=== PATIENT | male | born 1990 | race Caucasian/White ===

== ENCOUNTER → 2019-02-04 15:39 | Outpatient (CLI) | payer OTHER, MEDICAID, SELFPAY ==
[2019-02-04 17:37] LABS: Hepatitis B Surface Antigen NEGATIVE s/c (NEGATIVE)
[2019-02-04 17:44] LABS: Urine Chlamydia NOT DETECTED
[2019-02-04 17:52] LABS: HIV 1 & 2 Ab/Ag 4th Gen Combo NEGATIVE (NEGATIVE); Hep C Virus Ab w/Reflex Quant NEGATIVE s/c (NEGATIVE)
[2019-02-07 22:23] LABS: RPR Screen Nonreactive (Nonreactive)
[2019-02-08 08:42] LABS: Urine N gonorrhoeae DETECTED
== END ==
PROVIDERS: PCP Family Medicine; Visit Provider Family Medicine
DX: N48.9 Disorder of penis, unspecified (principal)
CPT/HCPCS: 36415; 86592; 86803; 87340; 87389; 87491; 87591

== ENCOUNTER 2019-02-06 05:28 | Emergency (ER) | payer OTHER, MEDICAID, SELFPAY ==
[2019-02-06 05:34] VITALS: BP 130/75; PULSE 82; RESP 18; TEMP 36.5; O2SAT 98
[2019-02-06 05:52] LABS: Bacteria Urine None Seen
[2019-02-06 06:09] LABS: Bilirubin Urine UA NEGATIVE (NEGATIVE); Color Urine UA YELLOW; Glucose Urine UA NEGATIVE (Negative); Ketones Urine UA NEGATIVE (NEGATIVE); Leukocyte Esterase Urine UA 3+ (NEGATIVE); Nitrite Urine UA NEGATIVE (Negative); Occult Blood Urine UA 3+ (Negative); Protein Urine UA NEGATIVE (Negative); Specific Gravity Urine UA <=1.005 (1.000-1.035); Urobilinogen Urine UA 0.2 E.U./dL (0.2)
[2019-02-06 06:14] LABS: Appearance Urine UA SL CLOUDY
--- NOTE | 2019-02-06 06:21 | ED.MALEGU ---
HPI - Male Genitourinary General Chief complaint: Urogenital-Male Stated complaint: UTI Source: patient Mode of arrival: Ambulatory Limitations: no limitations History of Present Illness HPI Narrative: 28-year-old male comes emergency department with complaint of pain at the urethra, discharge, dysuria that is been worsening. Patient actually saw his primary care on sounds like they did urine gonorrhea chlamydia testing, HIV, syphilis and hepatitis. Patient has not gotten those results back yet but he states he was having some dysuria and was concerned about possible STDs. Patient states he has had exposures that would be potential for causing infection. Patient denies any fevers, he denies any abdominal pain, no vomiting, no testicular pain. He he states he has had STDs in the past. He denies any other medical problems other than psychiatric issues. He states his psychiatric issues are controlled this time. He denies any allergies to medications Related Data Home Medications Medication Instructions Recorded Confirmed No Known Home Medications 02/04/19 02/04/19 Allergies Allergy/AdvReac Type Severity Reaction Status Date / Time No Known Drug Allergies Allergy Verified 02/04/19 14:39 Review of Systems Review of Systems ROS Unobtainable: All systems reviewed & are unremarkable except as noted in HPI and below Patient History Medical/Surgical History Medical History Anxiety (Chronic) Chronic back pain (Chronic ~2006) Chronic cough (Chronic ~2014) Depression (Chronic) GERD (gastroesophageal reflux disease) (Chronic) Headache (Chronic ~2012) Herpes (Chronic ~2011) Occipital neuralgia (Chronic ~2012) Surgical History Anesthesia (Resolved) History of third molar tooth extraction Status post tonsillectomy and adenoidectomy Social History marital status: unmarried,single Smoking Status: Never smoker alcohol intake: current (ON OCCASION ) substance use type: marijuana Family/Social History Social History marital status: unmarried,single Smoking Status: Never smoker alcohol intake: current (ON OCCASION ) substance use type: marijuana alcohol intake frequency: a few times a month Alcohol type: beer and wine Substance Use Type: marijuana Exam Narrative Exam Narrative: GENERAL: Alert and oriented x three, well-nourished, well-appearing male in mild distress. HEENT: Head normocephalic, atraumatic, EOMI, pupils reactive, face symmetric, moist mucous membranes NECK: Supple, full range of motion CARDIOVASCULAR: Regular rate and rhythm without murmurs, rubs or gallops. RESPIRATORY: Breath sounds equal bilaterally, no wheezes rales or rhonchi. ABDOMEN: Soft, nontender. Normoactive bowel sounds all 4 quadrants. No guarding or rebound, rigidity, no mass : No CVA tenderness. Male: Patient has normal testicles, patient is uncircumcised, patient does have swelling at the urethra with small amount of discharge and irritation, there are no vesicles or is, no other rash. testicles non-tender, cremasteric reflex intact, no inguinal hernias noted. EXTREMITIES: Normal range of motion, no clubbing or edema. Neurovascularly intact NEUROLOGICAL: Cranial nerves II through XII grossly intact. Moving all extremities SKIN: Warm, dry, no petechiae, no rashes or lesions. Initial Vital Signs Initial Vital Signs: Vital Signs Temperature 97.7 F 02/06/19 05:34 Pulse Rate 82 02/06/19 05:34 Respiratory Rate 18 02/06/19 05:34 Blood Pressure 130/75 02/06/19 05:34 Pulse Oximetry 98 02/06/19 05:34 Course Orders Ordered: ED Orders 02/06/19 05:45 Urinalysis and Microscopic Stat Urine Chlamydia Gonorrhea PCR Stat Urine Culture Stat Discontinued Medications Azithromycin (Zithromax) 1,000 mg PO NOW ONE Stop: 02/06/19 06:38 Last Admin: 02/06/19 06:48 Dose: 1,000 mg Documented by: MMCFARL Ceftriaxone Sodium (Rocephin) 250 mg IM NOW ONE Stop: 02/06/19 06:38 Vital Signs Vital signs: Vital Signs - 8 hr 02/06/19 05:34 Temperature 97.7 F Pulse Rate 82 Respiratory Rate 18 Blood Pressure 130/75 Pulse Oximetry 98 MDM - Male Genitourinary Lab Data Labs: Lab Results 02/06/19 Range/Units 05:45 Urine Color Yellow Urine Appearance Sl cloudy Urine pH 7.0 (4.5-8.0) Ur Specific [place] <=1.005 (1.000-1.035) Urine Protein Negative (Negative) Urine Glucose (UA) Negative (Negative) g/dL Urine Ketones Negative (NEGATIVE) Urine Occult Blood 3+ H (Negative) Urine Nitrate Negative (Negative) Urine Bilirubin Negative (NEGATIVE) Urine Urobilinogen 0.2 (0.2) E.U./dL Ur Leukocyte Esterase 3+ H (NEGATIVE) Urine RBC 5-10/hpf H (0-5/HPF) Urine WBC 10-30/hpf H (0-5/HPF) Urine Bacteria None seen (None) Ur Culture Indicated? Specimen cultured MDM Narrative Medical decision making narrative: Patient has urine gonorrhea that is positive from Dr. Powell. Patient's HIV is negative, some of his other lab work is still pending. Updated patient, Hoskins plan to treat with antibiotics and have a follow-up for testing to make sure that he has had curative treatment. Patient is comfortable with this plan has an appointment about a week from now on Friday. Discharge Plan Departure Patient Disposition: Home Clinical Impression: Gonorrhea Instructions: DI for Gonorrhea Activity Restrictions/Additional Instructions: Follow-up with Dr. Powell at your appointment on Friday. Discuss getting retested to make sure that you have had curative treatment. Do not engage in sexual activity until you have been retested for curative treatment. I would also recommend using condoms and measures to protect yourself from STDs. Return to the ER for fevers, rapidly worsening swelling, pain, difficulty or inability to urinate, no abdominal pain, persistent vomiting or other new or concerning symptoms. Prescriptions: No Action No Known Home Medications RF: 0 Referrals: David Powell MD [Primary Care Provider] -
[2019-02-06 06:41] LABS: Culture Indicated Urine Specimen Cultured; RBC Urine 5-10/HPF (0-5/HPF); WBC Urine 10-30/HPF (0-5/HPF)
[2019-02-06] MEDS: AZITHROMYCIN 250 MG TABLET 1000 MG PO (06:48)
[2019-02-06] MEDS: cefTRIAXone 500 MG VIAL 250 MG IM (07:41)
[2019-02-06 07:42] VITALS: BP 112/65; PULSE 72; RESP 16; O2SAT 98
[2019-02-06] MEDS: IBUPROFEN 400 MG TABLET PO (08:15)
[2019-02-06 08:17] LABS: Urine Chlamydia NOT DETECTED
[2019-02-06 08:49] VITALS: BP 118/71; PULSE 74; RESP 18; O2SAT 99
--- NOTE | 2019-02-06 12:30 | PC.NURSE ---
Called patients home phone and left a message that his cell phone was left here in the ER. Also called patients contacts # and left a message with caregiver for that family member. She said she would call the patients mother and ask her to let him know. Patients phone and chef under are locked in the psych lock drawer with patients stickers.
[2019-02-08 08:42] LABS: Urine N gonorrhoeae DETECTED
== END 2019-02-06 08:49 | disposition home or self-care (01) ==
PROVIDERS: Emergency Provider Emergency Medicine; PCP Family Medicine
DX: A54.9 Gonococcal infection, unspecified (principal)
CPT/HCPCS: 81001; 87086; 87491; 87591; 96372; 99282; 99283; J0696

== ENCOUNTER → 2019-02-26 16:27 | Outpatient (CLI) | payer OTHER, MEDICAID, SELFPAY ==
[2019-02-26 18:31] LABS: Urine N gonorrhoeae NOT DETECTED
[2019-02-26 19:06] LABS: Urine Chlamydia NOT DETECTED
== END ==
PROVIDERS: PCP Family Medicine; Visit Provider Family Medicine
DX: A54.9 Gonococcal infection, unspecified (principal); A64 Unspecified sexually transmitted disease
CPT/HCPCS: 87491; 87591

== ENCOUNTER → 2019-05-15 17:03 | Outpatient (CLI) | payer OTHER, MEDICAID, SELFPAY | PROVIDERS: PCP Family Medicine; Visit Provider Physician Assistant | DX: S81.009A Unspecified open wound, unspecified knee, initial encounter (principal) | CPT/HCPCS: 87070; 87075; 87077; 87147; 87186; 87205 ==

== ENCOUNTER → 2019-09-07 16:25 | Outpatient (CLI) | payer OTHER, MEDICAID, SELFPAY ==
[2019-09-08 17:32] LABS: Hep C Virus Ab w/Reflex Quant NEGATIVE s/c (NEGATIVE)
== END ==
PROVIDERS: PCP Family Medicine; Referring Provider Family Medicine; Visit Provider Family Medicine
DX: A64 Unspecified sexually transmitted disease (principal)
CPT/HCPCS: 36415; 86696; 86803

== ENCOUNTER → 2019-10-17 09:23 | Outpatient (CLI) | payer OTHER, MEDICAID, SELFPAY ==
[2019-10-17 09:44] LABS: Add Manual Diff / Slide Review NO; Basophils Absolute Auto 0 /uL (0-100); Basophils Percent Auto 0.5 % (0-2); Eosinophils Absolute Auto 300 /uL (0-450); Eosinophils Percent Auto 5.3 % (2-4); Hematocrit 45.5 % (41-53); Lymphocytes Absolute Auto 1400 /uL (1100-4500); Lymphocytes Percent Auto 28.8 % (25-40); Mean Corpuscular HGB Conc 35.1 % (30-36); Mean Corpuscular Hemoglobin 30.6 PG (26-34); Mean Corpuscular Volume 87.1 fL (80-100); Monocytes Absolute Auto 500 /uL (0-900); Monocytes Percent Auto 9.7 % (3-14); Neutrophils Absolute Auto 2800 /uL (1500-7000); Neutrophils Percent Auto 55.7 % (50-75); Platelet Count 130 X10^3/uL (150-400); Red Blood Cell Count 5.22 X10^6/uL (4.5-5.9)
[2019-10-17 09:56] LABS: Alanine Aminotransferase 15 IU/L (<50); Albumin 4.6 g/dL (3.5-5.0); Albumin Globulin Ratio 1.7 (1.0-2.8); Alkaline Phosphatase 34 U/L (38-126); Aspartate Aminotransferase 22 IU/L (17-59); BUN Creatinine Ratio 20.3 (6-22); Bilirubin Total 1.5 mg/dL (0.2-1.3); Blood Urea Nitrogen 16 mg/dL (9-20); Calcium 9.4 mg/dL (8.4-10.2); Carbon Dioxide 31 mmol/L (22-32); Chloride 102 mmol/L (98-107); Estimated Glomerular Filt Rate > 60.0 mL/min (>60); Globulin 2.7 g/dL (1.7-4.1); Glucose 100 mg/dL (70-100); HEMOLYSIS < 15 (0-50); Potassium 4.1 mmol/L (3.4-5.1); Sodium 139 mmol/L (137-145); Total Protein 7.3 g/dL (6.3-8.2)
== END ==
PROVIDERS: PCP Family Medicine; Referring Provider Family Medicine; Visit Provider Family Medicine
DX: R73.9 Hyperglycemia, unspecified (principal)
CPT/HCPCS: 36415; 80053; 85025

== ENCOUNTER → 2020-07-19 14:29 | Outpatient (CLI) | payer OTHER, MEDICAID, SELFPAY ==
[2020-07-20 06:02] LABS: RPR Screen Non Reactive (Non Reactive)
[2020-07-20 16:19] LABS: Hepatitis B Surface Antigen NEGATIVE s/c (NEGATIVE)
[2020-07-20 16:37] LABS: HIV 1 & 2 Ab/Ag 4th Gen Combo NEGATIVE (NEGATIVE); Hep C Virus Ab w/Reflex Quant NEGATIVE s/c (NEGATIVE)
[2020-07-21 00:07] LABS: Chlamydia trachomatis NAA Negative (Negative); Neisseria gonorrhoeae NAA Negative (Negative)
== END ==
PROVIDERS: PCP Family Medicine; Referring Provider Family Medicine; Visit Provider Family Medicine
DX: Z11.3 Encounter for screening for infections with a predominantly sexual mode of transmission (principal)
CPT/HCPCS: 36415; 86592; 86803; 87340; 87389; 87491; 87591

== ENCOUNTER 2021-08-13 11:54 | Emergency (ER) | payer OTHER, MEDICAID, SELFPAY ==
[2021-08-13 12:36] VITALS: BP 113/74; PULSE 61; RESP 18; TEMP 36.2; O2SAT 99; BMI 23.7
--- NOTE | 2021-08-13 15:40 | ED_ITS ---
HPI - Recheck/Abnormal Lab/Rx <JAMIE Moses - Last Filed: 08/13/21 16:25> General Chief Complaint: Recheck/Abnormal Lab/Rx Stated Complaint: got electricuted last night by wall heater Time Seen by Provider: 08/13/21 15:33 Source: patient Mode of arrival: Ambulatory History of Present Illness HPI narrative: 30-year-old male presents to the emergency department after he states he had an electrical injury he came in contact with last night. Patient states that he was cleaning a heater panel, he felt hit like tingly and then was not sure and then touched it harder and then it shocked his hand he states that the numbness and tingling went up his arm to his face. He denies any syncope, he denies any chest pain, palpitations, dizziness, lightheadedness, headache, vision changes, weakness, or any other concern. He states that it resolved just after but then he was doing some searching on the Internet about possible injuries and became nervous. Patient denies any shortness of breath, difficulty breathing, chest pain, or back pain. He denies any ongoing sensation changes in his right arm and face. He is tolerating p.o. without any difficulty has not had a fever. Denies any rash or burn on his hand. Related Data Home Medications Medication Instructions Recorded Confirmed No Known Home Medications 08/13/21 08/13/21 Allergies Allergy/AdvReac Type Severity Reaction Status Date / Time No Known Drug Allergies Allergy Verified 08/13/21 12:40 Review of Systems <JAMIE Moses - Last Filed: 08/13/21 16:25> Review of Systems Narrative: General: denies fever, chills Head/Neck: denies headache, neck pain Eyes: denies visual changes, eye pain Cardio: denies chest pain, palpitations Respiratory: denies shortness of breath, cough GI: denies abdominal pain, nausea, vomiting, or diarrhea : denies dysuria, hematuria MSK: denies joint pain, muscle weakness Skin: denies rash, itching Neuro: denies numbness, tingling Patient History <JAMIE Moses - Last Filed: 08/13/21 16:25> Medical History Anxiety Chronic back pain (~2006) Chronic cough (~2014) Depression GERD (gastroesophageal reflux disease) Headache (~2012) Herpes (~2011) Occipital neuralgia (~2012) Scabies STI (sexually transmitted infection) Surgical History Anesthesia History of third molar tooth extraction Status post tonsillectomy and adenoidectomy Social History marital status: unmarried,single Smoking Status: Never smoker alcohol intake: current substance use type: marijuana Smoking Status: Never smoker alcohol intake frequency: a few times a month Alcohol type: beer and wine Substance Use Type: marijuana Exam <JAMIE Moses - Last Filed: 08/13/21 16:25> Narrative Exam Narrative: Independently reviewed vitals signs and nursing notes. General: cooperative, comfortable, in no acute distress, well developed and well groomed Head: atraumatic, symmetrical facial expressions Neck: supple, atraumatic, without lymphadenopathy. Eyes: pupils equal round and reactive, EOMI, conjunctiva normal Nose: nares patent, no rhinorrhea Mouth/Throat: moist mucus membranes Cardiovascular: regular rate and rhythm sinus bradycardia, no peripheral edema, warm extremities Respiratory: normal effort, able to speak in complete sentences, no audible wheezing, stridor, or rales. No retractions or tachypnea. GI: abdomen soft, nontender to palpation, nondistended, no masses, no exquisite tenderness with exam, without guarding or rebound. MSK: moves all extremities, ambulatory w/steady gait, neurovascularly intact, no weakness Skin: brisk capillary refill, no rash, no erythema, no wound Neuro: normal speech and cognition, A&O x3, normal tone Psych: mental status is grossly normal, congruent mood, normal affect, pleasant and cooperative Initial Vital Signs Initial Vital Signs: Vital Signs Temperature 97.1 F L 08/13/21 12:36 Pulse Rate 61 08/13/21 12:36 Respiratory Rate 18 08/13/21 12:36 Blood Pressure 113/74 08/13/21 12:36 Pulse Oximetry 99 08/13/21 12:36 <Nina Gaspar DO - Last Filed: 08/14/21 19:27> Initial Vital Signs Initial Vital Signs: Vital Signs Temperature 97.1 F L 08/13/21 12:36 Pulse Rate 61 08/13/21 12:36 Respiratory Rate 18 08/13/21 12:36 Blood Pressure 113/74 08/13/21 12:36 Pulse Oximetry 99 08/13/21 12:36 Course <JAMIE Moses - Last Filed: 08/13/21 16:25> Orders Ordered: ED Orders 08/13/21 15:40 EKG-12 Lead Stat Vital Signs Vital signs: Vital Signs - 8 hr 08/13/21 12:36 Temperature 97.1 F L Pulse Rate 61 Respiratory Rate 18 Blood Pressure 113/74 Pulse Oximetry 99 <Nina Gaspar DO - Last Filed: 08/14/21 19:27> Orders Ordered: ED Orders 08/13/21 15:40 EKG-12 Lead Stat Vital Signs Vital signs: Vital Signs - 8 hr 08/13/21 12:36 Temperature 97.1 F L Pulse Rate 61 Respiratory Rate 18 Blood Pressure 113/74 Pulse Oximetry 99 MDM - Recheck/Abnormal Lab/Rx <JAMIE Moses - Last Filed: 08/13/21 16:25> ECG Data Interpretation: EKG independently reviewed by myself and Dr. Gaspar which reveals sinus bradycardia at [56] bpm with regular axis and intervals. No STEMI, ST segment c hanges, arrhythmia, or acute ischemic changes. No priors to compare to. [facility] Narrative Medical decision making narrative: This is a 30-year-old male who was cleaning a heater last night when he states he was electrocuted by it and the spasms went up his right arm to his face, and then dissipated. He was concerned about a brain injury. He requested an EKG for concerns about his heart which was normal, sinus bradycardia without any ectopy or ST changes. Patient does not have any wound or external burn, discussed his experience, this sounds most like skeletal muscle activation in his right arm and his right neck which went away immediately. He did not have a seizure, syncope, it did not go through his whole body, he did not feel palpitations, chest pain shortness of breath, or any other symptom at all. He is tolerating p.o., states that he is anxious because he was searching on the Internet. Patient was reassured, encouraged to follow-up with his primary care provider if he has ongoing symptoms related to this. He appears well-hydrated, and nontoxic-appearing Patient is appropriate and amenable to discharge home. Vital signs are stable on repeat examination is unremarkable. Patient has been informed of results. Patient has been given strict return to ER precautions for any new or worsening symptoms. Patient understands to follow up closely with outpatient providers as instructed. Patient understands plan and agrees to discharge home. All questions and concerns answered at this time. Discharge Plan Departure Patient Disposition: Home Clinical Impression: Electric shock Qualifiers: Encounter type: initial encounter Qualified Code(s): T75.4XXA - Electrocution, initial encounter Instructions: Electrical Bhatia and Injuries Activity Restrictions/Additional Instructions: *You have been diagnosed with electrical injury to your right arm and face. Likely, there is nothing dangerous found on your exam or your EKG today. Please focus staying hydrated, take Tylenol or ibuprofen as needed for any pain or ongoing fatigue. Please follow-up with your primary doctor if you feel that you have symptoms which are ongoing related to this injury. Because you did not have a seizure, palpitations, dizziness, or 6 syncope, this is most likely a skeletal muscle only injury. I hope you start feeling better soon, please be in touch with Dr. Powell if you have any ongoing concerns. I will send your chart to him. *What to do: *Please continue to take your regular medications as directed. [ ] New medication prescriptions sent to your pharmacy: [ ] [ ] New medication written as a paper prescription [x ] No new medications given *Please follow up with your primary care provider in 2-3 days, call for an appointment. Let them know you were seen in the Emergency Department and that we asked that you be seen for follow-up. We will electronically transmit a record of today's note if your PCP is in our system *If you do not have a primary care provider please contact [phone] to establish care with one of the [facility] primary care providers. *Return to Emergency Department if you should have any new, worsening or concerning symptoms, such as [fever greater than 101F, chills, worsening pain, persistent vomiting or other bothersome symptoms] Prescriptions: No Action No Known Home Medications 0RF Referrals: David Powell MD [Primary Care Provider] - <Nina Gaspar DO - Last Filed: 08/14/21 19:27> Cosign ED Attending Cosignature Attestation: I was immediately available in the department for consultation. Documentation has been reviewed.
[2021-08-13 16:24] VITALS: BP 113/64; PULSE 47; RESP 16; O2SAT 97
== END 2021-08-13 16:24 | disposition home or self-care (01) ==
PROVIDERS: Emergency Provider Nurse Practitioner Critical Care Medicine; PCP Family Medicine
DX: T75.4XXA Electrocution, initial encounter (principal); R00.1 Bradycardia, unspecified; W86.1XXA Exposure to industrial wiring, appliances and electrical machinery, initial encounter
CPT/HCPCS: 93005; 99282